=== PATIENT | female | born 1930 | race Caucasian/White ===

== ENCOUNTER 2016-11-25 12:02 | Inpatient (IN) | payer MEDICARE, BC ==
[~2016-11-25] VITALS: Ht 175.3 cm; Wt 54.6 kg
--- NOTE | ~2016-11-25 | ECH ---
Transthoracic Echocardiography Report (TTE) Demographics Patient Name JUANCARLOS HERCULES Date of Study 12/02/2016 Patient Number [id number] Visit Number [id number] Date of 1930 Room Number 525 Accession Number [id number] Gender Female Age 86 year(s) Referring Jobbryan Marin Turk Membership Advisor Cecy Aguilar [facility] Physician Kristine Acosta MD Physician Interpreting [facility] Real Estate Attorney Physician MD Supervising Ordering Physician Kristine Acosta MD, MD/P Nurse Stress Financial Engineer Conclusions Summary Technically adequate exam. The estimated left ventricular ejection fraction is 45%. Segmental wall motion abnormalities noted. Mild left ventricular hypertrophy. Normal right ventricle structure and function. Bubble study was done, there is no evidence for a PFO or ASD. There is mild aortic regurgitation by color Doppler. Moderate-severe tricuspid regurgitation by color Doppler. There is moderate pulmonary hypertension. The pulmonary pressure (RVSP) is 48 mmHg. Mild-moderate pulmonic valve regurgitation by color Doppler. Trivial pericardial effusion. Procedure Type of Study TTE procedure:Echo Complete SF. Procedure Date Date: 12/02/2016 Start: 09:04 AM Technical Quality: Fair Indications:TIA and Pleural effusion. Appropriate Use Criteria: 9 Contrast Medium: Bubble Study. Height: 69 inches Weight: 124 pounds BSA: 1.69 m Rhythm: Within normal limits HR: 67 bpm BP: 124/67 mmHg M-Mode/2D Measurements LV Diastolic Dimension: 3.68 cm LV Systolic Dimension: 2.26 cm LV Septum Diastolic: 1.17 cm LV PW Diastolic: 1.15 cm AO Root Dimension: 2.15 cm Cardiac Output: 3.25 l/min LA Dimension: 3.17 cm Cardiac Index: 1.92 l/min*m RV Diastolic Dimension: 2.93 cm LA volume index: 29 ml/m LVOT: 1.87 cm LVOT VTI: 17.68 cm RV Base: 2.97 cm LV Stroke volume: 48.53 ml RV Mid: 2.29 cm LV Stroke volume index: 28.72 ml/m RV Length: 5.8 cm TAPSE: 2 cm TDI-S': 14 cm/s Doppler Measurements AV Mean Gradient: 2.89 mmHg MV Peak E-Wave: 0.81 m/s LVOT Peak Velocity: 0.88 m/s MV Peak A-Wave: 0.63 m/s AV Area (Continuity):1.79 cm AV P1/2t: 493.2 msec MV P1/2t: 49.3 msec TR Velocity:3.08 m/s TR Gradient:37.95 mmHg MV Deceleration Time: 165.8 msec Estimated RAP:10 mmHg MV Area (PHT): 4.47 cm Estimated RVSP: 48 mmHg PV Peak Velocity: 0.79 m/s PV Peak Gradient: 2.51 mmHg Estimated PASP: 47.95 mmHg RA Area: 8.88 cm Findings Left Ventricle The left ventricle is normal in size . Mild left ventricular hypertrophy. Diastolic assessment reveals normal relaxation. Right Ventricle Normal right ventricle structure and function. Left Atrium Normal left atrial size. Bubble study was done, there is no evidence for a PFO or ASD. Right Atrium Normal right atrial size. Mitral Valve Normal mitral valve structure and function. Trivial mitral regurgitation by color Doppler. Aortic Valve Normal aortic valve structure and function. There is mild aortic regurgitation by color Doppler. Tricuspid Valve Normal appearing tricuspid valve. Moderate-severe tricuspid regurgitation by color Doppler. There is moderate pulmonary hypertension. The pulmonary pressure (RVSP) is 48 mmHg. Pulmonic Valve Normal pulmonic valve structure and function. Mild-moderate pulmonic valve regurgitation by color Doppler. Pericardial Effusion Trivial pericardial effusion. Miscellaneous Visualized portions of the aortic root and ascending aorta appear normal in size. Pleural Effusion Pleural effusion present. Contractility Score LV regional wall motion:(0-Non visualized 1-Normal 2-Hypokinesis 3-Akinesis 4-Dyskinesis 5-Aneurysm) Signature
--- NOTE | ~2016-11-25 | HP ---
ADMIT: 11/25/2016 RM/LOC: 525 [facility] MR#: [id number] 2620 [facility] [address] [place], [place] [address] ARACELI HERCULESGuicho Hdez [address] [place] [address] History and Physical SEX: F AGE: 86 : 1930 DATE OF SERVICE: For details of full admission history and physical, please see Rob Ye's note. I have reviewed that and in agreement with his full note. Lorna has had bowel obstructive symptoms now since possibly last Monday. She describes them since Monday of this week. She was admitted on Monday to [facility] with abdominal discomfort. Findings at that time suggested possible bowel obstruction. Yesterday, Dr. Finley was consulted and recommended NG tube decompression for conservative measures. That was attempted, but unsuccessful placement. Symptoms persisted with distention through today and unchanged abdominal films. She was transferred here for further care. She currently denies any abdominal pain and does not have any vomiting. She has some mild nausea. She is not sure when the last bowel movement or flatus she has had was. On exam, her abdomen is soft, distended, nontender. There were no palpable masses. Based on the CT scan and clinical exam, I have recommended initial measures of conservative management with nasogastric tube placement to see if that will allow resolution of this episode. If that does not help symptoms, would then further discuss exploratory laparotomy with Lorna as definitive management. She understands all of this and does agree with that plan. EDIT: 11/28/2016 0733 njv Keith Manuel MD/ felicitas JOB #: [id number] CC: Ant Finley, Attending Physician Marin Matias, Family Physician
--- NOTE | 2016-11-30 08:28 | OR ---
ADMIT: 11/25/2016 RM/LOC: 525 [facility] MR#: [id number] [address] [address] JUANCARLOS HERCULES [address] [place] [address] Operative/Delivery Room Report SEX: F AGE: 86 : 1930 SURGERY DATE: 11/26/2016 SURGEON: Keith Manuel MD PREOPERATIVE DIAGNOSIS: Small-bowel obstruction. POSTOPERATIVE DIAGNOSIS: Small-bowel obstruction. PROCEDURE: Exploratory laparotomy with lysis of adhesions. ANESTHESIA: General endotracheal. ESTIMATED BLOOD LOSS: 10 mL. FINDINGS: Clear transition point in the distal small bowel trapped under a single adhesive band from sigmoid colon to abdominal lateral right lower quadrant area. DESCRIPTION OF PROCEDURE: The patient was taken to the operating room and placed supine on the operating room table. General anesthesia was established. The abdomen was prepped and draped in the standard surgical fashion. Vertical midline lower abdominal incision was made through the skin and carried to the fascia. The fascia was incised in the midline and the peritoneal cavity was entered. There was a large quantity of ascites which was suctioned clear. The small bowel which was free was then eviscerated. Inspection in the pelvis and the right lower quadrant revealed the adhesive band which was bluntly divided to allow release of the small bowel entrapment. This portion of bowel was eviscerated and clearly showed the transition point from markedly dilated to decompressed distally with the indentation from the adhesive band. This area was carefully inspected and there was no evidence for intraluminal abnormality present. I was able to demonstrate patency of ADMIT: 11/25/2016 RM/LOC: 525 [facility] MR#: [id number] [address] [address] JUANCARLOS HERCULES [address] [place] [address] Operative/Delivery Room Report SEX: F AGE: 86 : 1930 the lumen and able to milk small bowel contents across this area without difficulty. The adhesive band was removed and sent as pathology. This did not appear malignant, nor were there any palpable abnormalities otherwise in the abdomen or pelvis. The small bowel was run throughout its course back to the ligament of Treitz. There were no other obstructive areas and no evidence for intraluminal pathology palpable. The remainder of the abdominal exploration was negative without palpable abnormality or visual abnormality. The midline fascial margins were closed with #1 PDS suture. Skin edges and subcutaneous tissues were irrigated and approximated with skin nichole. A dressing was applied. Sponge, needle, and instrument counts were correct at the end of the case. The patient tolerated the procedure well and transferred to the recovery area in stable condition. Keith Manuel MD/ felicitas JOB #: [id number] CC: Ant Finley, Attending Physician Marin Matias, Family Physician
--- NOTE | 2016-11-30 08:28 | HP ---
ADMIT: 11/25/2016 RM/LOC: 525 [facility] MR#: [id number] ACC#: [id number] 2620 [facility] [address] [place], [place] [address] JUANCARLOS HERCULES [address] [place] [address] History and Physical SEX: F AGE: 86 : 1930 DATE OF SERVICE: 11/25/2016 CHIEF COMPLAINT: Abdominal pain with distention. HISTORY OF PRESENT ILLNESS: Lorna is a very pleasant 86-year-old female, who had abdominal pain since a week ago. She denies any current abdominal pain, but she did have some earlier more on the right side of her abdomen, mainly her right upper quadrant. It is dull in nature. She has also developed some nausea and had one time emesis. Due to her symptoms, she was seen in [place] for the last 2 days where they admitted her and attempted to place an NG, but could not get it in the right location. She has now been transferred to our facility for surgical management. The patient cannot remember the last time she had a bowel movement or passed flatus. She does have an appetite. She denies any hematemesis or any prior episodes like this. PAST MEDICAL HISTORY: Significant for: 1. Hypertension. 2. Anemia. 3. Overactive bladder. 4. Osteoporosis. 5. Preventricular heart beats. PAST SURGICAL HISTORY: No prior surgeries. ALLERGIES: THE PATIENT DENIES ANY ALLERGIES; HOWEVER, DOCUMENTATION REVEALS AN ALLERGY TO AMLODIPINE. MEDICATIONS: 1. Aspirin 325 mg tablet daily. 2. Ocuvite 50+ daily. 3. Tylenol 2 tabs p.o. q.4h p.r.n. 4. Vitamin D3 of 50,000 units daily. FAMILY HISTORY: Her dad was diagnosed with stomach cancer. SOCIAL HISTORY: The patient is occasional alcohol user, but denies tobacco or illicit drug use. REVIEW OF SYSTEMS: CONSTITUTIONAL: The patient denies any fever, chills, or night sweats. The rest of a comprehensive 10-point review of systems was performed and all other systems are negative. PHYSICAL EXAMINATION: GENERAL: The patient is in no acute distress. She is alert and oriented. HEENT: Head is normocephalic and atraumatic. EOMS are intact. Conjunctivae free of icterus, erythema, or pallor. Pinnae, free of deformities. Nose, midline. No tracheal deviation. NECK: Supple. SKIN: Negative for jaundice, clubbing, edema, pallor, or cyanosis. ADMIT: 11/25/2016 RM/LOC: 525 [facility] MR#: [id number] [address] [address] JUANCARLOS HERCULES [address] [address] History and Physical SEX: F AGE: 86 : 1930 LUNGS: Normal respiratory effort. Clear to auscultation bilaterally. HEART: Regular rate and rhythm with occasional PVC and reset. Distal pulses intact. No murmurs noted upon auscultation. ABDOMEN: Distended but soft. Tenderness in the right lateral side of abdomen. No surgical scars noted. NEURO: Grossly intact. LABORATORY DATA: Lab work is pending. DIAGNOSTIC IMAGING: CT of abdomen and pelvis attained in [place], revealed small-bowel obstruction with transition point in the distal ilium. ASSESSMENT: Small bowel obstruction. PLAN: The plan right now is to treat this with conservative measures. I will repeat NG placement, and if this is unsuccessful, I will have Interventional Radiology do it. I will keep her n.p.o. Admit the patient and get some lab work. I also did discuss the possibility that if conservative measures do not work, we will have to consider surgery even possibly today. Further evaluation will be dependent on Dr. Manuel's input. I discussed this plan with the patient and her family, who was present during my whole assessment. They are in agreement of this plan, I had all their questions answered and would like to proceed. CHENTE Rouse / Keith Manuel MD / felicitas JOB #: [id number] CC: Ant Finley, Attending Physician Marin Matias, Family Physician
--- NOTE | 2016-12-02 16:18 | CO ---
ADMIT: 11/25/2016 RM/LOC: [address] [facility] MR#: [id number] 2620 [facility] [address] [place] [address] IRENE HERCULES [address] [place] [address] Consultation SEX: F AGE: 86 : 1930 DATE OF CONSULTATION: 12/01/2016 ATTENDING PHYSICIAN: Ant Finley CONSULTING PHYSICIAN: Rob Carmona MD REASON FOR CONSULTATION: Stroke-like symptoms. HISTORY OF PRESENT ILLNESS: Audra is a very nice 86-year-old female, originally from [place], [place]. She is accompanied by her cousin today. She does normally see Dr. Matias as her primary care physician. She is bit of a poor historian and she does have a bit of confusion at this time. However, her sister states that she has a history of hypertension and just some PVCs as well as urinary frequency. She does see Dr. Matias regularly in [place] and was originally in the hospital in [place]. However, she developed a small bowel obstruction and she was transferred to the [facility] on November 25. She was transferred to the service of Dr. Manuel. She was managed on conservative measures for small bowel obstruction and ultimately underwent exploratory laparotomy with lysis of adhesions. Irene Zhu is actually relatively in normal state of health. Pain is well controlled. She is eating a modified diet and was talking to some family over the phone. At that time, she became suddenly confused, did have some left facial droop as well as slurring of her speech and did just abruptly hang up the phone and was disoriented. At that time, then the cousin ran out of the room, notified the nurse that the patient was having stroke-like symptoms. They initiated the stroke pager at that time, consulted the primary Dr. Manuel who then at that time, initiated a CT scan of the head and requested consultation with my service. I arrived at her bedside. She has already had a CT scan and has had complete resolution of her symptoms. She is still disoriented. She has no slurring of her speech. No focal neurological deficits. However, is a very poor historian. She does tell me she lives by herself. She has never , has no children, has no pets, and she likes to do several hobbies, however, she does not get into details of what these are. She was taken care a lot by Dr. Matias and does like her primary care doctor very much. She states that she did have a bowel problem, but that is actually getting better with Dr. Manuel. Otherwise, she states she is doing very well and really has no other complaints other than that, she has to urinate a lot and would like to move my exam along so she can go to the bathroom. PAST MEDICAL HISTORY: 1. Hypertension. 2. Anemia. 3. Overactive bladder. 4. Osteoporosis. 5. PVCs. MEDICATIONS: Current medications: 1. Dulcolax. 2. Lovenox. ADMIT: 11/25/2016 RM/LOC: [address] [facility] MR#: [id number] [address] [place] [phone] [place] [address] Consultation SEX: F AGE: 86 : 1930 3. Intralipid. 4. Normal saline. Outpatient medications: 1. Aspirin 325 mg daily. 2. Vitamin D 50,000 units daily. 3. Ocuvite daily. 4. Ondansetron p.r.n. ALLERGIES: HYDROCORTISONE, NEOMYCIN, BACITRACIN, SULFAMETHOXAZOLE, TRIMETHOPRIM, AMLODIPINE, POLYMYXIN, AND JOSE INHIBITORS. FAMILY HISTORY: She is not able to give me her family history, however, the record states that her dad had stomach cancer. SOCIAL HISTORY: She does not do drugs. She does not smoke. She very rarely drinks. She is unmarried. She does not have any pets. She has several hobbies, but she does live alone. REVIEW OF SYSTEMS: A complete review of systems is reviewed and per HPI. She thinks that she does have a bit of confusion. PHYSICAL EXAMINATION: VITAL SIGNS: Blood pressure is 127/72, pulse rate is 87, respiratory rate is 16, oxygen saturation is 95% on room air. GENERAL: She is alert and oriented x2. No acute distress. HEENT: Normocephalic, atraumatic. Extraocular muscles intact. Pupils equal, round, responsive to light. No nasal discharge. She has no facial droop. Cranial nerves II through XII grossly intact. HEART: Regular rhythm and rate. LUNGS: Clear to auscultation bilaterally. However, she is somewhat distant at the bases. ABDOMEN: Soft. Postoperative. Nontender. EXTREMITIES: No clubbing, cyanosis, or edema. She moves all her extremities. NEURO: Cranial nerves II through XII grossly intact. She moves all her extremities. She has actually normal coordination. She has no pronator drift. She does hear and respond to my questions well. Denies any visual changes. LABORATORY AND X-RAY DATA: Head CT, no evidence of intracranial hemorrhage, no evidence of ischemia. Laboratories this morning; white blood cells are 11.4, hemoglobin is 8.5, platelets 348. Sodium is 133, potassium is 4.24, chloride is 101, bicarb is 27, BUN is 15, creatinine is 0.7, glucose 75, calcium is 8.5, total bilirubin is 0.5, total protein 5.5, albumin is 2.4, AST is 30, ALT is 21. UA, no UTI. ASSESSMENT AND PLAN: 1. Facial droop and slurred speech, resolved. 2. Transient ischemic attack. 3. Hypertension. ADMIT: 11/25/2016 RM/LOC: [address] [facility] MR#: [id number] [address] [address] IRENE HERCULES [address] [place] [address] Consultation SEX: F AGE: 86 : 1930 4. Postoperative exploratory laparotomy, day #5. 5. Mild delirium. 6. Physical deconditioning. Upon review of the patient's chart as well as a historical presentation as well as symptoms reported by the nurse. As the patient's symptoms are completely resolved upon my evaluation other than that she was just a little bit delirious, this very well could be consistent with a transient ischemic attack. It is interesting that her home medications list full-dose aspirin on her medication list, unclear if she does take this for pain or if she has potentially had some events in the past. I will go ahead and request her last clinic note from her primary care doctor, Dr. Matias. I will go ahead and initiate her on aspirin 325 mg x1 now, followed by 325 mg every 24 hours. I will proceed with a CBC, CMP, TSH, repeat urine studies, lipid profile, hemoglobin A1c as well as a chest x-ray. I will obtain a transthoracic echocardiogram with a bubble study. I will obtain bilateral lower extremity venous Dopplers as well as a 12-lead EKG and bilateral carotid Dopplers. With these symptoms, we will go ahead and request also an MRI of her brain with contrast. The patient's blood pressure is well controlled. She is already on deep vein thrombosis prophylaxis. I will await these laboratory results and I will adjust accordingly. The patient is back in her normal state of health other than some mild delirium or certainly her state of health prior to her acute event at this time. I will go ahead and focus on secondary prevention, and we will await her data and historical documents from her primary care physician. I will continue to follow this patient and make recommendations based on her clinical progress. Rob Carmona MD/ felicitas JOB #: [id number] CC: Ant Finley, Attending Physician Marin Matias, Family Physician Keith Manuel MD
[2016-12-06] MEDS ORDERED: ASA325 MG PO (08:09)
[2016-12-06] MEDS ORDERED: LIPITOR DPS10 MG PO (08:10)
[2016-12-06] MEDS ORDERED: PEPCID DPS20 MG PO (08:10)
[2016-12-06] MEDS ORDERED: TUMS DPS500 MG PO (08:10)
[2016-12-06] MEDS ORDERED: LASIX DPS40 MG PO (08:10)
[2016-12-06] MEDS ORDERED: DULCOLAX-DPS10 MG PR (08:10)
[2016-12-06] MEDS ORDERED: BENADRYL-DPS25 MG PO (08:11)
[2016-12-06] MEDS ORDERED: MAALOX DPS30 ML PO (08:11)
[2016-12-06] MEDS ORDERED: SURFAK DPS240 MG PO (08:11)
[2016-12-06] MEDS ORDERED: COMPAZINE DPS5 MG PO (08:11)
[2016-12-06] MEDS ORDERED: NITROSTAT0.4 MG SL (08:12)
[2016-12-06] MEDS ORDERED: TYLENOL DPS325 MG PO (08:12)
[2016-12-06] MEDS ORDERED: HYTONE-DPS 2.5%30 GM TP (08:12)
--- NOTE | 2016-12-22 07:13 | DS ---
ADMIT: 11/25/2016 RM/LOC: 525 [facility] MR#: [id number] 2620 [facility] [address] [place], [place] [address] JUANCARLOS HERCULES [address] [place] [address] Discharge Summary SEX: F AGE: 86 : 1930 ADMISSION DATE: 11/25/2016 DISCHARGE DATE: 12/05/2016 ADMITTING DIAGNOSIS: Small-bowel obstruction. DISMISSAL DIAGNOSES: 1. Small bowel obstruction, reactive mesothelial hyperplasia with fibrous adhesion noticed on the small bowel with pathology. 2. Hypertension. 3. Anemia. 4. Overactive bladder. 5. Osteoporosis. 6. PVCs (premature ventricular contractions). PROCEDURE: Exploratory laparotomy with lysis of adhesions. HOSPITAL COURSE: The patient was originally a transfer from [place] prior to surgery. She was an inpatient admit, and had an NG placed upon arrival. Initially, she was treated conservatively tolerating some ice chips. However, after 24 hours of conservative measures the patient was not responding well to therapy and so ultimately she underwent exploratory laparotomy with lysis of adhesions on 11/26/2016. After surgery, the patient transferred to the floor without any complications. She had a morphine PROVISIONING SPECIALIST for pain control and was given ice chips again. Initially it was noted that the patient was a bit disoriented, but it was thought to be from anesthesia and pain medication shortly after in the postoperative period. Cazares was pulled on 11/28/2016 that was originally placed in the OR. She was not getting a lot of oral intake and so a midline was placed and the patient was started on PPN. Slowly, the patient began to open up. She was tolerating an advanced diet and PPN was discontinued on 12/01/2016. Then suddenly, the patient while in her room and talking to her family, became very confused, weak to one side and had facial droop. Because of these stroke like symptoms, a stat CT was ordered and Neurology was consulted who actually Dr. Carmona of [facility] was notified. A full stroke workup including brain MRI, carotid ultrasounds, and lower extremity ultrasounds revealed no acute abnormalities. It was believed that the patient suffered a TIA and so Dr. Carmona continued her 325 mg aspirin daily. She was also placed to telemetry at this time. From this point on, the patient was starting to improve. She was tolerating an advanced diet. Her pain was controlled and had normal bowel function. Vitals and lab work began to normalize in the coming days. Given the complexity of her hospital stay, Social Work was consulted to help with placement prior to dismissal. It was eventually noted that the patient was safe to dismiss on 12/05/2016, and so the patient transferred to [facility]. DISCHARGE INSTRUCTIONS: 1. Follow up with Dr. Manuel in 7-10 days. 2. Regular diet. 3. Full code. ADMIT: 11/25/2016 RM/LOC: 525 [facility] MR#: [id number] [address] [place] [address] [place] [address] Discharge Summary SEX: F AGE: 86 : 1930 DISCHARGE MEDICATIONS: 1. Aspirin 325 mg daily. 2. Lasix 40 mg daily. 3. Lipitor 10 mg as directed. 4. Pepcid 20 mg b.i.d. 5. Tums 500 mg as directed. 6. Dulcolax 10 suppository daily p.r.n. 7. Benadryl 25 mg q.6 p.r.n. 8. Compazine 5 mg q.6h p.r.n. 9. Maalox 30 mL q.6h p.r.n. 10.Surfak 240 mg b.i.d. p.r.n. 11.Tylenol 325 mg 1-2 q.4h p.r.n. 12.Nitrostat 0.4 mg 5 minutes x3 p.r.n. 13.Hytone 2.5% 30 g tube to hemorrhoids b.i.d. p.r.n. CHENTE Rouse / Keith Manuel MD / vdg JOB #: [id number] CC: Ant Finley MD, Attending Physician Marin Matias MD, Family Physician
== END 2016-12-05 15:59 | DRG 336 ==
LOC: 5MS 12:02
PROVIDERS: ADMIT Surgery
PROC: 0W9G0ZX Drainage of Peritoneal Cavity, Open Approach, Diagnostic (ICD-10-PCS; principal; 2016-11-26)
PROC: 0DN80ZZ Release Small Intestine, Open Approach (ICD-10-PCS; principal; 2016-11-26)
DX: K56.5 Intestinal adhesions [bands] with obstruction (postinfection) (principal); R18.8 Other ascites; F05 Delirium due to known physiological condition; I50.20 Unspecified systolic (congestive) heart failure; I11.0 Hypertensive heart disease with heart failure; I27.2 Other secondary pulmonary hypertension; G45.9 Transient cerebral ischemic attack, unspecified; D64.9 Anemia, unspecified; E87.6 Hypokalemia; R09.02 Hypoxemia; N32.81 Overactive bladder; M81.0 Age-related osteoporosis without current pathological fracture; Z79.82 Long term (current) use of aspirin